=== PATIENT | male | born 1950 | race Caucasian/White ===

== ENCOUNTER 2018-04-13 10:25 | Emergency (ER) | payer OTHER, SELFPAY ==
[2018-04-13 10:25] VITALS: BP 154/74; PULSE 81; RESP 18; TEMP 36.5; O2SAT 100; BMI 20.3
--- NOTE | 2018-04-13 10:34 | ED.ABDPAIN ---
HPI - Abdominal Pain General Chief Complaint: Abdominal Pain Stated Complaint: STOMACH PAIN Time Seen by Provider: 04/13/18 10:34 Source: patient Mode of arrival: ambulatory Limitations: no limitations History of Present Illness HPI narrative: 67-year-old male here for evaluation of left-sided abdominal pain. Patient states that it has started within the past 24-48 hours. States that it comes in waves. Is on his left side. Also states that he has some discomfort with urination. No history kidney stones. No burning with urination. No fevers. No change in bowel habits. No vomiting. Never anything like this before Related Data Previous Rx's Medication Instructions Recorded ciprofloxacin HCl 500 mg PO BID 10 Days #20 tab 04/13/18 metronidazole [Flagyl] 500 mg PO TID 10 Days #30 tab 04/13/18 Allergies Allergy/AdvReac Type Severity Reaction Status Date / Time No Known Drug Allergies Allergy Verified 04/13/18 10:47 Review of Systems Constitutional Denies fever(s) Cardiovascular Denies chest pain and Denies dyspnea Respiratory Denies dyspnea Gastrointestinal Gastrointestinal: Reports abdominal pain, Denies change in bowel habits, Denies diarrhea, Denies nausea and Denies vomiting Genitourinary Denies hematuria, Reports dysuria, Denies testicular pain, Denies urinary frequency and Denies urinary hesitancy Musculoskeletal Denies myalgias and Denies arthralgias Integumentary/Breasts Denies rash Hematologic/Lymphatic Comments: Not on anticoagulation PFSH Medical History Healthy adult (Acute) Surgical History No pertinent past surgical history (Acute) Social History Smoking Status: Current every day smoker Exam Initial Vital Signs Initial Vital Signs: Vital Signs Temperature 97.7 F 04/13/18 10:25 Pulse Rate 81 04/13/18 10:25 Respiratory Rate 18 04/13/18 10:25 Blood Pressure 154/74 H 04/13/18 10:25 Pulse Oximetry 100 04/13/18 10:25 Const General: cooperative, healthy appearing, comfortable, well developed, well groomed and No acute distress Orientation: alert, awake and oriented x3 HENMT Head: normal to inspection and normocephalic Resp Effort & Inspection: normal respiratory effort Auscultation: clear to auscultation bilaterally Cardio Rate: regular rate Rhythm: regular rhythm Pulses: radial pulses present GI Inspection: non-distended Palpation: soft, No firm, No rigid and tender (Left-sided abdominal tenderness) Skin Lesions: no lesions Rashes: no rashes Neuro General: alert, awake and oriented x3 Extrem General: normal to inspection and capillary refill normal Psych Appearance: grossly normal and well kempt Course Orders Ordered: ED Orders 04/13/18 11:10 CT abdomen pelvis w con Stat 04/13/18 11:25 Complete Blood Count AUTO DIFF Stat Comprehensive Metabolic Panel Stat Lipase Stat Discontinued Medications Sodium Chloride (Normal Saline 0.9%) 1,000 mls @ 1,000 mls/hr IV BOLUS ONE Stop: 04/13/18 12:09 Last Infusion: 04/13/18 12:31 Dose: 0 mls/hr Admin: 04/13/18 11:29 Dose: 1,000 mls/hr Vital Signs - 8 hr 04/13/18 10:25 Temperature 97.7 F Pulse Rate 81 Respiratory Rate 18 Blood Pressure 154/74 H Pulse Oximetry 100 MDM - Abdominal Pain Lab Data Attestation: I reviewed the patient's lab results. Result diagrams: 04/13/18 11:25 04/13/18 11:25 Lab Results 04/13/18 04/13/18 Range/Units 11:25 11:25 WBC 11.4 H (4.5-11.0) X10^3/uL RBC 4.73 (4.5-5.9) X10^6/uL Hgb 15.5 (13.5-17.5) g/dL Hct 43.7 (41-53) % MCV 92.5 (80-100) fL MCH 32.8 (26-34) PG MCHC 35.4 (30-36) % RDW 13.7 (11.6-14.8) % Plt Count 252 (150-400) X10^3/uL Neut % (Auto) 83.5 H (50-75) % Lymph % (Auto) 7.9 L (25-40) % [place] % (Auto) 7.8 (3-14) % Eos % (Auto) 0.6 L (2-4) % Baso % (Auto) 0.2 (0-2) % Neut # (Auto) 9500 H (2172-2124) /uL Sodium 135 L (137-145) mmol/L Potassium 4.4 (3.4-5.1) mmol/L Chloride 101 (98-107) mmol/L Carbon Dioxide 24 (22-32) mmol/L BUN 16 (9-20) mg/dL Creatinine 0.70 (0.66-1.25) mg/dL Estimated GFR > 60.0 (>60) mL/min BUN/Creatinine Ratio 22.9 H (6-22) Glucose 109 (80-110) mg/dL Calcium 9.3 (8.4-10.2) mg/dL Total Bilirubin 0.7 (0.2-1.3) mg/dL AST 21 (17-59) IU/L ALT 19 L (21-72) IU/L Alkaline Phosphatase 80 (38-126) U/L Total Protein 7.3 (6.3-8.2) g/dL Albumin 4.0 (3.5-5.0) g/dL Globulin 3.3 (1.7-4.1) g/dL Albumin/Globulin Ratio 1.2 (1.0-2.8) Lipase 17 L (23-300) U/L Imaging Data CT scan - abdomen: Radiologist's impression: PROCEDURE: CT ABDOMEN PELVIS W CON INDICATIONS: Left-sided abdominal pain TECHNIQUE: After the administration of intravenous contrast, 5 mm thick sections acquired from the diaphragm to the symphysis. 5 mm coronal and sagittal reformats were acquired. For radiation dose reduction, the following was used: automated exposure control, adjustment of mA and/or kV according to patient size. COMPARISON: None. FINDINGS: Image quality: Excellent. ABDOMEN: Lung bases: Lung bases are clear. Heart size is normal. Solid organs: Liver is normal in size and enhancement. Gallbladder is unremarkable. Biliary system is non dilated. Pancreas enhances normally. Spleen is normal in size and enhancement. No adrenal nodules. Kidneys demonstrate normal size and enhancement, without hydronephrosis. Subcentimeter hypoechoic foci within the left kidney are too small to fully characterize on this exam, but likely represent renal cysts. Peritoneum and bowel: No free intracranial air identified. There are multiple loops of dilated fluid-filled small bowel throughout the abdomen. There is diffuse wall thickening of the sigmoid colon with pericolonic fluid noted. The appendix cannot be clearly identified on this exam, but there are no convincing right lower quadrant inflammatory findings to suggest acute appendicitis. Nodes and vessels: No retroperitoneal or mesenteric adenopathy by size criteria. Aorta and inferior vena cava are normal in size. Moderate calcified and noncalcified plaque of the abdominal aorta and branch vessels. Miscellaneous: No ventral hernias. PELVIS: Genitourinary: Bladder wall thickness is normal. Miscellaneous: No inguinal hernias or adenopathy. Bones: No suspicious bony lesions. No vertebral body compression fractures. Minimal multilevel degenerative changes of the spine. IMPRESSION: Diffuse wall thickening of the sigmoid colon with pericolonic fluid, concerning for an acute colitis/diverticulitis. Multiple loops of dilated fluid filled small bowel within the abdomen may represent a superimposed ileus versus bowel obstruction. Dictated by: Karan Bolanos M.D. on 04/13/2018 at 13:19 MDM Narrative Medical decision making narrative: Patient with a relatively benign abdominal exam. Is afebrile. CT scan does show diverticulitis and this does fit his symptoms. His urine shows no signs of infection. Low concern for renal stones. Despite CT scan results I do feel that obstruction is less likely. No signs of abscess. Will send home with a prescription for oral antibiotics. Patient was given return precautions. His is at bedside. They expressed understanding and agreement plan. Discharge Plan Departure Patient Disposition: Home Clinical Impression: Diverticulitis Instructions: Diverticulitis Activity Restrictions/Additional Instructions: I recommend that you start the antibiotics today and take them as directed. I do recommend that you may contact with the primary care doctor because eventually will need a colonoscopy. Return to the emergency department for any new symptoms, fevers, inability to take your medications, worsening abdominal pain or any other concerning symptoms Prescriptions: New metronidazole [Flagyl] 500 mg tablet 500 mg PO TID 10 Days Qty: 30 RF: 0 ciprofloxacin HCl 500 mg tablet 500 mg PO BID 10 Days Qty: 20 RF: 0
--- NOTE | 2018-04-13 11:10 | DI.CT.S_ITS ---
PROCEDURE: CT ABDOMEN PELVIS W CON INDICATIONS: Left-sided abdominal pain TECHNIQUE: After the administration of intravenous contrast, 5 mm thick sections acquired from the diaphragm to the symphysis. 5 mm coronal and sagittal reformats were acquired. For radiation dose reduction, the following was used: automated exposure control, adjustment of mA and/or kV according to patient size. COMPARISON: None. FINDINGS: Image quality: Excellent. ABDOMEN: Lung bases: Lung bases are clear. Heart size is normal. Solid organs: Liver is normal in size and enhancement. Gallbladder is unremarkable. Biliary system is non dilated. Pancreas enhances normally. Spleen is normal in size and enhancement. No adrenal nodules. Kidneys demonstrate normal size and enhancement, without hydronephrosis. Subcentimeter hypoechoic foci within the left kidney are too small to fully characterize on this exam, but likely represent renal cysts. Peritoneum and bowel: No free intracranial air identified. There are multiple loops of dilated fluid-filled small bowel throughout the abdomen. There is diffuse wall thickening of the sigmoid colon with pericolonic fluid noted. The appendix cannot be clearly identified on this exam, but there are no convincing right lower quadrant inflammatory findings to suggest acute appendicitis. Nodes and vessels: No retroperitoneal or mesenteric adenopathy by size criteria. Aorta and inferior vena cava are normal in size. Moderate calcified and noncalcified plaque of the abdominal aorta and branch vessels. Miscellaneous: No ventral hernias. PELVIS: Genitourinary: Bladder wall thickness is normal. Miscellaneous: No inguinal hernias or adenopathy. Bones: No suspicious bony lesions. No vertebral body compression fractures. Minimal multilevel degenerative changes of the spine. IMPRESSION: Diffuse wall thickening of the sigmoid colon with pericolonic fluid, concerning for an acute colitis/diverticulitis. Multiple loops of dilated fluid filled small bowel within the abdomen may represent a superimposed ileus versus bowel obstruction. Dictated by: Karan Bolanos M.D. on 04/13/2018 at 13:19 Approved by: Karan Bolanos M.D. on 04/13/2018 at 13:27
[2018-04-13] MEDS: SODIUM CHLORIDE 0.9% 1,000 ML 1000 ML IV (11:29)
[2018-04-13 11:32] LABS: Add Manual Diff / Slide Review NO; Basophils Percent Auto 0.2 % (0-2); Eosinophils Percent Auto 0.6 % (2-4); Hematocrit 43.7 % (41-53); Hemoglobin 15.5 g/dL (13.5-17.5); Lymphocytes Percent Auto 7.9 % (25-40); Mean Corpuscular HGB Conc 35.4 % (30-36); Mean Corpuscular Hemoglobin 32.8 PG (26-34); Mean Corpuscular Volume 92.5 fL (80-100); Monocytes Percent Auto 7.8 % (3-14); Neutrophils Absolute Auto 9500 /uL (1500-7000); Neutrophils Percent Auto 83.5 % (50-75); Platelet Count 252 X10^3/uL (150-400); Red Blood Cell Count 4.73 X10^6/uL (4.5-5.9); Red Cell Distribution Width 13.7 % (11.6-14.8); White Blood Cell Count 11.4 X10^3/uL (4.5-11.0)
[2018-04-13 11:44] LABS: Alanine Aminotransferase 19 IU/L (21-72); Albumin Globulin Ratio 1.2 (1.0-2.8); Alkaline Phosphatase 80 U/L (38-126); Aspartate Aminotransferase 21 IU/L (17-59); BUN Creatinine Ratio 22.9 (6-22); Bilirubin Total 0.7 mg/dL (0.2-1.3); Blood Urea Nitrogen 16 mg/dL (9-20); Calcium 9.3 mg/dL (8.4-10.2); Carbon Dioxide 24 mmol/L (22-32); Chloride 101 mmol/L (98-107); Estimated Glomerular Filt Rate > 60.0 mL/min (>60); Globulin 3.3 g/dL (1.7-4.1); Glucose 109 mg/dL (80-110); HEMOLYSIS 16 (0-50); Lipase 17 U/L (23-300); Potassium 4.4 mmol/L (3.4-5.1); Sodium 135 mmol/L (137-145); Total Protein 7.3 g/dL (6.3-8.2)
[2018-04-13 13:56] VITALS: BP 127/66; PULSE 55; RESP 14; O2SAT 99
== END 2018-04-13 13:57 | disposition home or self-care (01) ==
PROVIDERS: Emergency Provider Emergency Medicine; PCP Family Medicine
DX: K57.92 Diverticulitis of intestine, part unspecified, without perforation or abscess without bleeding (principal)
CPT/HCPCS: 36591; 74177; 80053; 81003; 83690; 85025; 96360; 99283; 99285; Q9967

== ENCOUNTER → 2019-10-13 11:32 | Outpatient (CLI) | payer OTHER, SELFPAY ==
--- NOTE | 2019-10-13 11:33 | DI.RAD.S_ITS ---
PROCEDURE: XR HAND RT MIN 3V INDICATIONS: traumatic amputation 4th digit TECHNIQUE: Pre-views of the hand(s) acquired. COMPARISON: None. FINDINGS: Bones: There is amputation of the right ring finger at the level at the base of the proximal phalanx. There is overlying soft tissue swelling and defect. Remainder of the visualized osseous structures appear intact. Carpal bones are normally aligned. No suspicious bony lesions. Soft tissues: No suspicious soft tissue calcifications. IMPRESSION: Amputation of the right ring finger at the level of the base of the distal phalanx. No radiopaque soft tissue foreign bodies visualized. Dictated by: Cuate Blas M.D. on 10/13/2019 at 14:42 Approved by: Cuate Blas M.D. on 10/13/2019 at 14:44
== END ==
PROVIDERS: PCP Family Medicine; Referring Provider Family Medicine; Visit Provider Family Medicine
DX: S68.114A Complete traumatic metacarpophalangeal amputation of right ring finger, initial encounter (principal); X58.XXXA Exposure to other specified factors, initial encounter
CPT/HCPCS: 73130

== ENCOUNTER → 2019-10-20 14:13 | Outpatient (CLI) | payer OTHER, SELFPAY ==
[2019-10-21 21:45] LABS: COVID19 Sendout Not Detected (Not Detect)
== END ==
PROVIDERS: PCP Family Medicine; Visit Provider Physician Assistant
DX: Z01.812 Encounter for preprocedural laboratory examination (principal)
CPT/HCPCS: 87635

== ENCOUNTER 2019-10-23 08:32 | Day surgery (SDC) | payer OTHER, SELFPAY ==
[2019-10-20 11:47] VITALS: BMI 19.9
[2019-10-23] VITALS (7 sets, daily range): BP systolic 113–149; BP diastolic 69–80; PULSE 42–47; RESP 15–20; TEMP 36.2–36.7; O2SAT 97–100; BMI 19.9
[2019-10-23] MEDS: LACTATED RINGERS 1,000 ML 42 ML IV (08:53)
--- NOTE | 2019-10-23 09:55 | PM.PREOP ---
Pre-operative Note COVID-19 COVID-19 status: Negative Result date/Date tested (Pos, Neg/Pending): 10/20/19 Interval Note History & Physical reviewed/Exam performed by Physician: Yes Changes to H&P: No
[2019-10-23] MEDS: CEFAZOLIN 2 GM/100 ML FROZ.PIGGY IV (10:12)
[2019-10-23] MEDS: BUPIVACAINE 0.25% W/ EPI 30 ML VIAL INJ (10:32)
--- NOTE | 2019-10-23 10:34 | SUR.OPER ---
Supine on padded OR bed, head on pillow, operative arm secured on padded hand table at <90 degrees abduction, nonoperative arm on padded armboard at <90 degrees abduction, legs uncrossed, safety belt at thigh, tape over blanket over lower legs.
--- NOTE | 2019-10-23 11:23 | PM.OP.1 ---
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 He had a rudimentary closure at a clinic in [place] where [place]. He is interested in revision amputation shortening through the dip joint to facilitate wound healing decrease the profile of the bulbous amputation stump site. He has baseline decreased digit sensation the baseline PIP joint her fracture from Dupuytren's. The risks and benefits of the procedure have been discussed with the patient even opportunity to ask questions. The risks of surgery include but are not limited to infection, malunion, nonunion, persistence of pain, damage to nerves and blood vessels, posttraumatic arthritis, DVT, PE, cardiopulmonary complications and . The patient expressed a thorough understanding of the risks and benefits of surgery and has elected to proceed. Consent was signed. Surgeon: Sarah Tesfaye Click Yes if Unassisted: Yes Anesthesia Type: General and Local Operative Notes Findings: Traumatic amputation to the base of the distal phalanx. Open wound volarly partially healed there is some fibrinous exudate no surrounding erythema. There is a large knot of not yet dissolved suture present centrally and nylon sutures peripherally. These are removed. The finger is opened the fishmouth type incision the room minute of the distal phalanx was removed through the DIP joint. This is shortened and smoothed off using the rongeur. Flexor tendon is found and cut and allowed to retract preop extensor tendon previously been cut and not present. The neurovascular bundles on the medial lateral aspects were then isolated and the nerves were cut on tension laterally to retract. Closure Type: primary Specimen(s): none sent Estimated Blood Loss (mL): 1 Blood products transfused: none Procedure in detail: Patient was seen in the preoperative area site of surgery was marked informed consent confirmed. Patient's back to the operating room by the anesthesia team anesthesia was administered. The patient's right hand was positioned on hand table. Formal prepping and draping of the site of surgery was undertaken. A formal time-out was performed confirming the patient's side and site of surgery administration of appropriate preoperative antibiotics. All were in agreement. Attention was turned to the right ring finger. 3 cc of 0.25% Marcaine with lidocaine were used as the volar metacarpal block. Streetman drain was used as a tourniquet for approximately 10 minutes. Previous sutures were removed and the poor healing distal wound tissue was debrided. Fishmouth incision was drawn out. This was opened up and the volar and dorsal skin flaps retracted exposing remainder of the distal phalanx which was removed through the DIP joint and a rongeur was used to smooth the condyles of the DIP joint to reduce the profile. Once this was completed wound was irrigated. Flexor Tavia right isolated low cut under tension and allowed to retract. Then the neurovascular bundles were isolated and nerve was cut under tension allowed to retract. Vascular structures were shortening cauterized. Next to the closure flaps were fashioned. Some deep 4 0 Monocryl sutures were placed followed by 4 0 nylon in the skin. Flaps were fashioned and dog-ears trimmed. Wound closed up nicely. The tourniquet got that was used for approximately 10 minutes was then let go and the finger pinked up nicely. Dressings were placed and the patient was taken to the PACU in good condition. No immediate complications this procedure. Complications: none Post-operative Condition: stable Disposition: PACU Plan for aftercare: Keep dressing clean dry and intact. If saturated may change to clean gauze. Take medications as directed for pain. Follow up in 2 weeks.
--- NOTE | 2019-10-23 12:05 | SUR.PHASEII ---
1158-Pt dressed and ready to go, denies pain or nausea. All dc instructions given and pt verbalizes understanding, rx and written instructions with pt. Gaitt steady and no problems drinking juice. at ER curbside, pt taken out via wc by tech. Kenia
== END 2019-10-23 11:58 | disposition home or self-care (01) ==
PROVIDERS: PCP Family Medicine; Referring Provider Orthopaedic Surgery Foot and Ankle Surgery; Visit Provider Orthopaedic Surgery Foot and Ankle Surgery
PROC: (CPT 26951; principal; 2019-10-23 10:15)
DX: S68.624A Partial traumatic transphalangeal amputation of right ring finger, initial encounter (principal); X58.XXXA Exposure to other specified factors, initial encounter; Y93.89 Activity, other specified; Y92.89 Other specified places as the place of occurrence of the external cause; F17.210 Nicotine dependence, cigarettes, uncomplicated
CPT/HCPCS: 26951; J0690; J2250; J2704; J3010

== ENCOUNTER → 2023-01-04 08:54 | Outpatient (CLI) | payer MEDICARE, OTHER, SELFPAY ==
[2023-01-04 10:35] LABS: Add Manual Diff / Slide Review NO; Basophils Absolute Auto 100 /uL (0-100); Basophils Percent Auto 1.1 % (0-2); Eosinophils Absolute Auto 200 /uL (0-450); Eosinophils Percent Auto 3.2 % (2-4); Hematocrit 45.5 % (41-53); Hemoglobin 15.7 g/dL (13.5-17.5); Lymphocytes Absolute Auto 2000 /uL (1100-4500); Lymphocytes Percent Auto 29.9 % (25-40); Mean Corpuscular HGB Conc 34.5 % (30-36); Mean Corpuscular Hemoglobin 32.6 PG (26-34); Mean Corpuscular Volume 94.3 fL (80-100); Monocytes Absolute Auto 700 /uL (0-900); Monocytes Percent Auto 11.1 % (3-14); Neutrophils Absolute Auto 3600 /uL (1500-7000); Neutrophils Percent Auto 54.7 % (50-75); Platelet Count 241 X10^3/uL (150-400); Red Blood Cell Count 4.82 X10^6/uL (4.5-5.9); Red Cell Distribution Width 14.3 % (11.6-14.8); White Blood Cell Count 6.6 X10^3/uL (4.5-11.0)
[2023-01-04 10:50] LABS: Alanine Aminotransferase 27 IU/L (<50); Albumin 4.2 g/dL (3.5-5.0); Albumin Globulin Ratio 1.4 (1.0-2.8); Alkaline Phosphatase 74 U/L (38-126); Aspartate Aminotransferase 31 IU/L (17-59); BUN Creatinine Ratio 13.7 (6-22); Bilirubin Total 0.5 mg/dL (0.2-1.3); Blood Urea Nitrogen 10 mg/dL (9-20); Calcium 9.3 mg/dL (8.4-10.2); Carbon Dioxide 28 mmol/L (22-32); Chloride 100 mmol/L (98-107); Cholesterol 178 mg/dL (140-199); Estimated Glomerular Filt Rate > 60 mL/min (>60); Globulin 3.1 g/dL (1.7-4.1); Glucose 99 mg/dL (80-110); HDL Cholesterol 80 mg/dL (40-60); HEMOLYSIS < 15 (0-50); LDL Cholesterol Calculated 89 mg/dL (<100); Potassium 4.7 mmol/L (3.4-5.1); Sodium 134 mmol/L (137-145); Total Protein 7.3 g/dL (6.3-8.2); Triglycerides 44 mg/dL (35-150)
[2023-01-04 11:20] LABS: Prostate Specific Antigen 3.88 ng/mL (0.10-4.00)
[2023-01-04 11:23] LABS: TSH w/ Reflex to FT4 1.76 uIU/mL (0.47-4.68)
== END ==
PROVIDERS: PCP Family Medicine; Referring Provider Family Medicine; Visit Provider Family Medicine
DX: Z13.6 Encounter for screening for cardiovascular disorders (principal); Z12.5 Encounter for screening for malignant neoplasm of prostate; Z00.00 Encounter for general adult medical examination without abnormal findings; R53.83 Other fatigue; D64.9 Anemia, unspecified
CPT/HCPCS: 36415; 80053; 80061; 84153; 84443; 85025; G0103

== ENCOUNTER → 2023-03-13 10:44 | Outpatient (CLI) | payer MEDICARE, OTHER, SELFPAY ==
--- NOTE | 2023-03-13 10:47 | DI.CT.S_ITS ---
PROCEDURE: CT LUNG LOW DOSE SCREENING INDICATIONS: smoking TECHNIQUE: Noncontrast 2.0-2.5 mm thick sections acquired from the pulmonary apices to the posterior costophrenic angles. 7 mm thick axial MIP, and 5 mm coronal and sagittal reformats were then acquired. For radiation dose reduction, the following was used: automated exposure control, adjustment of mA and/or kV according to patient size. COMPARISON: None. FINDINGS: Image quality: Diagnostic, given the low radiation dose technique. Lungs and pleura: There are some small pulmonary nodular densities scattered throughout both lungs in the 1-3 mm range. There is some mild to moderate emphysematous change noted throughout both lungs. No focal lung infiltrate or significant pulmonary mass lesion is identified. No pleural effusion. Mediastinum: Heart size is normal. No pericardial effusion. No mediastinal adenopathy by size criteria. Thoracic aorta and central pulmonary arteries are normal in size. Esophagus is normal in caliber. No hiatal hernia. There are coronary artery and atherosclerotic vascular calcifications. Bones and chest wall: No suspicious bony lesions. No vertebral body compression fractures. No axillary or supraclavicular adenopathy by size criteria. There is a 1.3 low-attenuation thyroid nodule on the right which require sonographic follow up, per consensus guidelines.>> Upper Abdomen: Visualized upper abdomen solid organs and bowel loops appear normal in the absence of contrast. IMPRESSION: Small 1-3 mm pulmonary nodules scattered throughout both lungs. LUNG-RADS 2 . Continue annual surveillance at 1 year intervals. Clinically Significant Non-pulmonary Findings: 1. 1.3 cm low-attenuation nodule in the right aspect of the patient's thyroid gland. Recommend thyroid ultrasound for further evaluation. 2. Mild to moderate emphysematous change noted throughout both lungs. 3. Coronary artery and atherosclerotic vascular calcifications. Dictated by: Esvin Powell M.D. on 03/13/2023 at 14:51 Approved by: Esvin Powell M.D. on 03/13/2023 at 14:59
== END ==
PROVIDERS: PCP Family Medicine; Referring Provider Family Medicine; Visit Provider Family Medicine
DX: F17.210 Nicotine dependence, cigarettes, uncomplicated (principal); R91.8 Other nonspecific abnormal finding of lung field; E04.1 Nontoxic single thyroid nodule; I25.10 Atherosclerotic heart disease of native coronary artery without angina pectoris
CPT/HCPCS: 71271

== ENCOUNTER → 2024-02-24 08:24 | Outpatient (CLI) | payer MEDICARE, OTHER, SELFPAY ==
[2024-02-24 09:04] LABS: Add Manual Diff / Slide Review NO; Basophils Absolute Auto 100 /uL (0-100); Basophils Percent Auto 0.7 % (0-2); Eosinophils Absolute Auto 200 /uL (0-450); Eosinophils Percent Auto 3.3 % (2-4); Hematocrit 45.9 % (41-53); Hemoglobin 15.2 g/dL (13.5-17.5); Lymphocytes Absolute Auto 1700 /uL (1100-4500); Lymphocytes Percent Auto 24.9 % (25-40); Mean Corpuscular HGB Conc 33.1 % (30-36); Mean Corpuscular Hemoglobin 31.5 PG (26-34); Mean Corpuscular Volume 94.9 fL (80-100); Monocytes Absolute Auto 600 /uL (0-900); Monocytes Percent Auto 9.3 % (3-14); Neutrophils Absolute Auto 4200 /uL (1500-7000); Neutrophils Percent Auto 61.8 % (50-75); Platelet Count 309 X10^3/uL (150-400); Red Blood Cell Count 4.83 X10^6/uL (4.5-5.9); Red Cell Distribution Width 13.9 % (11.6-14.8); White Blood Cell Count 6.9 X10^3/uL (4.5-11.0)
[2024-02-24 09:23] LABS: Alanine Aminotransferase 23 IU/L (<50); Albumin 3.9 g/dL (3.5-5.0); Albumin Globulin Ratio 1.6 (1.0-2.8); Alkaline Phosphatase 82 U/L (38-126); Aspartate Aminotransferase 30 IU/L (17-59); BUN Creatinine Ratio 12.8 (6-22); Bilirubin Total 0.6 mg/dL (0.2-1.3); Blood Urea Nitrogen 10 mg/dL (9-20); Carbon Dioxide 29 mmol/L (22-32); Chloride 102 mmol/L (98-107); Cholesterol 190 mg/dL (140-199); Estimated Glomerular Filt Rate > 60 mL/min (>60); Globulin 2.5 g/dL (1.7-4.1); Glucose 107 mg/dL (80-110); HDL Cholesterol 74 mg/dL (40-60); HEMOLYSIS < 15 (0-50); LDL Cholesterol Calculated 105 mg/dL (<100); Potassium 4.8 mmol/L (3.4-5.1); Sodium 135 mmol/L (137-145); Total Protein 6.4 g/dL (6.3-8.2); Triglycerides 54 mg/dL (35-150)
[2024-02-24 09:53] LABS: Prostate Specific Antigen 3.98 ng/mL (0.10-4.00); Thyroid Stimulating Hormone 1.71 uIU/mL (0.47-4.68)
== END ==
PROVIDERS: PCP Family Medicine; Referring Provider Family Medicine; Visit Provider Family Medicine
DX: Z00.00 Encounter for general adult medical examination without abnormal findings (principal); Z13.6 Encounter for screening for cardiovascular disorders; Z12.5 Encounter for screening for malignant neoplasm of prostate
CPT/HCPCS: 36415; 80053; 80061; 84153; 84443; 85025; G0103

== ENCOUNTER → 2024-03-19 14:24 | Outpatient (CLI) | payer MEDICARE, SELFPAY ==
--- NOTE | 2024-03-19 14:25 | DI.CT.S_ITS ---
PROCEDURE: CT LUNG LOW DOSE SCREENING INDICATIONS: f/u thyroid nodule TECHNIQUE: Noncontrast 2.0-2.5 mm thick sections acquired from the pulmonary apices to the posterior costophrenic angles. 7 mm thick axial MIP, and 5 mm coronal and sagittal reformats were then acquired. For radiation dose reduction, the following was used: automated exposure control, adjustment of mA and/or kV according to patient size. COMPARISON: [facility], CT, CT LUNG LOW DOSE SCREENING, 03/13/2023, 10:56. FINDINGS: Image quality: Diagnostic. Lower Neck: No enlarged lymph nodes. Thyroid: Patient's known right thyroid lobe nodule is again seen and unchanged. Axillae: No enlarged lymph nodes. Subcentimeter lymph nodes are seen in bilateral axilla and measures up to 8 mm in size on the left side and 7 mm in size on the right side. Chest Wall: Unremarkable. Bones: No aggressive appearing bony lesions. Lungs and Pleura: No pneumothorax or pleural effusions. There is moderate centrilobular emphysema. Previously described 1-3 mm bilateral pulmonary nodules are again seen and are stable in size and appearance compared to prior studies with reference nodule seen in right middle lobe and measures 3 mm in size series 3 image 216. 9 x 6 mm nodular density is seen adjacent to posterior pleura of right lung base series 3, image 302. This area was more linear in appearance on previous study. Heart: Heart size is normal. No pericardial effusion. Thoracic Vessels: The aorta and pulmonary arteries demonstrate normal size. 2 vessel coronary artery atherosclerotic calcifications are seen. Mediastinum and Chandrika: No enlarged lymph nodes. Esophagus: No wall thickening. No hiatal hernia. Upper Abdomen: Visualized upper abdomen solid organs and bowel loops appear normal. IMPRESSION: 9 x 6 mm nodular density in posterior aspect of right lung base which could represent focal nodular atelectasis. Follow-up CT chest in 3 months is recommended. Other pulmonary nodules are all stable in size and appearance. Moderate centrilobular emphysema. LUNG-RADS 4A : Suspicious, recommend 3 month follow-up CT. Clinically Significant Non-pulmonary Findings: Moderate 2 vessel coronary artery atherosclerotic calcifications. Dictated by: Wilfrido Casillas M.D. on 03/19/2024 at 15:35 Approved by: Wilfrido Casillas M.D. on 03/19/2024 at 15:59
--- NOTE | 2024-03-19 14:25 | DI.US.S_ITS ---
PROCEDURE: US THYROID INDICATIONS: f/u thyroid nodule TECHNIQUE: Real-time scanning was performed of the thyroid gland, with image documentation. COMPARISON: None. FINDINGS: Thyroid: Right lobe measures 5.2 x 1.8 x 1.6 cm. Left lobe measures 4.5 x 1.5 x 1.3 cm. Isthmus is 0.2 cm thick. Echotexture is mildly heterogeneous. Nodule number: 1 Location: Right middle pole Size: 1.7 x 1.0 x 1.3 cm. Composition: Solid Echogenicity: Hypoechoic Shape: wider than tall. Margins: Smooth Echogenic foci: None Total points: 4 ACR TI-RADS category: TI-RADS 4 Nodule number: 2 Location: Right upper pole Size: 1.1 x 0.8 x 0.7 cm. Composition: Solid Echogenicity: Hypoechoic Shape: wider than tall. Margins: Smooth Echogenic foci: None Total points: 4 ACR TI-RADS category: TI-RADS 4 IMPRESSION: There are 2 right lobe thyroid nodules noted. There both TI-RADS 4 lesions. Based on the definitions and recommendations below, the larger of the 2 nodules, the right middle pole nodule satisfies criteria for ultrasound-guided FNA for tissue diagnosis, if this has nodule not previously been sampled with a benign diagnosis. ACR TI-RADS definitions and recommendations: TI-RADS 1 (benign): 0 points. FNA not needed. TI-RADS 2 (not suspicious): 2 points. FNA not needed. TI-RADS 3: 3 points. * FNA if 2.5 cm or larger, follow up if 1.5 cm or larger (at 1, 3, and 5 years). TI-RADS 4: 4-6 points. * FNA if 1.5 cm or larger, follow up if 1 cm or larger (at 1, 2, 3, and 5 years). TI-RADS 5: 7 points or more. * FNA if 1 cm or larger, follow up if 0.5 cm or larger (every year for 5 years). Dictated by: Duarte Rodriguez M.D. on 03/20/2024 at 10:10 Approved by: Duarte Rodriguez M.D. on 03/20/2024 at 10:15
== END ==
PROVIDERS: PCP Family Medicine; Referring Provider Family Medicine; Visit Provider Family Medicine
DX: Z12.2 Encounter for screening for malignant neoplasm of respiratory organs (principal); E04.2 Nontoxic multinodular goiter; F17.210 Nicotine dependence, cigarettes, uncomplicated; J43.2 Centrilobular emphysema; R91.8 Other nonspecific abnormal finding of lung field; I25.10 Atherosclerotic heart disease of native coronary artery without angina pectoris
CPT/HCPCS: 71271; 76536

== ENCOUNTER → 2024-03-25 14:23 | Outpatient (CLI) | payer MEDICARE, SELFPAY ==
[2024-03-27 13:36] LABS: Fecal Immunochemical Test Negative (Negative)
== END ==
PROVIDERS: PCP Family Medicine; Referring Provider Family Medicine; Visit Provider Family Medicine
DX: Z12.11 Encounter for screening for malignant neoplasm of colon (principal)
CPT/HCPCS: 82274

== ENCOUNTER → 2024-09-09 12:56 | Outpatient (CLI) | payer MEDICARE, SELFPAY ==
--- NOTE | 2024-09-09 12:58 | DI.US.S_ITS ---
PROCEDURE: US FINE NEEDLE ASPIRATION INDICATIONS: RIGHT NODULE TECHNIQUE: The indications, alternatives, benefits, risks, and complications of the procedure were explained to the patient. Written informed consent was obtained and placed in the chart. The thyroid region was examined sonographically and a site was chosen for ultrasound guided percutaneous sampling. The skin was prepared and draped in the usual fashion, and anesthetized with 1% lidocaine infiltrated from the skin down to the thyroid gland. Multiple passes were then performed, with contents emptied into an appropriate pathology specimen container. A bandage was applied to the area of access at completion of the study. COMPARISON: None. FINDINGS: Location(s) of lesion(s) sampled: Lower pole right thyroid lobe nodule. Sawyer: 25 gauge hypodermic needles. Number of passes: 6 Medications: 1% lidocaine for local anaesthesia. Complications: None. IMPRESSION: Successful ultrasound-guided thyroid nodule fine needle aspiration, with cytology results pending. Please see chart below for management recommendations based on cytology results. [facility] ReportingRecommendationsNon-diagnostic* Repeat US-guided FNA, with on-site cytology evaluation if possible. * Repeated non-diagnostic nodules without high suspicion US features: close observation vs surgical consult. * Consider surgery if nodule has high suspicion US features, grows >20% in 2 dimensions on followup, or patient has clinical risk factors for malignancy. Benign* If nodule has high suspicion US features: repeat US and FNA within 12 months. * If nodule has low to intermediate suspicion US features: repeat US at 12-24 months. If nodule grows (20% increase in at least 2 dimensions, with minimal increase of 2 mm or >50% change in volume), or development of new suspicious US features, then repeat FNA or continue followup. * If nodule has very low suspicion US features: followup US at >24 months. Atypia of undetermined significance, follicular lesion of undetermined significanceRepeat FNA, molecular testing, followup US, or surgical consult.Follicular neoplasm, suspicious for follicular neoplasmSurgical consult; also consider molecular testing. Suspicious for malignancySurgical consult.MalignantSurgical consult. Dictated by: Wilfrido Casillas M.D. on 09/12/2024 at 19:22 Approved by: Wilfrido Casillas M.D. on 09/12/2024 at 19:23
--- NOTE | 2024-09-09 12:58 | DI.CT.S_ITS ---
PROCEDURE: CT CHEST WO CON INDICATIONS: eval of pulmonary nodule on previos scan TECHNIQUE: Noncontrast 2.0-2.5 mm thick sections acquired from the pulmonary apices to the posterior costophrenic angles. 7 mm thick axial MIP, and 5 mm coronal and sagittal reformats were then acquired. For radiation dose reduction, the following was used: automated exposure control, adjustment of mA and/or kV according to patient size. COMPARISON: [facility], CT, CT LUNG LOW DOSE SCREENING, 03/19/2024, 15:06. FINDINGS: Image quality: Diagnostic. Lower Neck: No enlarged lymph nodes. Thyroid: Subcentimeter thyroid nodules do not require dedicated imaging follow-up. Axillae: No significantly enlarged lymph nodes. Chest Wall: Unremarkable. Bones: Unremarkable. Lungs and Pleura: No pneumothorax or pleural effusions. Band like area of atelectasis or scarring again seen at the right lung base with decreased inferior nodular component now measuring 5 x 5 mm (3/328) when compared to 9 x 6 mm previously. Additional pulmonary micronodules measuring 3 mm or less and benign calcified granulomas appear unchanged. Moderate centrilobular emphysema. Heart: Heart size is normal. No pericardial effusion. Moderate coronary artery calcifications. Thoracic Vessels: The aorta and pulmonary arteries demonstrate normal size. Mediastinum and Chandrika: No enlarged lymph nodes. Esophagus: No wall thickening. No hiatal hernia. Upper Abdomen: Visualized upper abdomen solid organs and bowel loops appear normal. IMPRESSION: Right lung base nodule has decreased in size when compared to the CT from 03/19/2024, favoring a benign process. LUNG-RADS 3; six-month follow-up low-dose chest CT. Clinically Significant Non-pulmonary Findings: Moderate coronary artery calcifications. Approved by: Delvin Hugo M.D. on 09/10/2024 at 14:00
== END ==
PROVIDERS: PCP Family Medicine; Referring Provider Family Medicine; Visit Provider Family Medicine
DX: R91.1 Solitary pulmonary nodule (principal); I25.10 Atherosclerotic heart disease of native coronary artery without angina pectoris; J43.2 Centrilobular emphysema; E04.1 Nontoxic single thyroid nodule
CPT/HCPCS: 10005; 71250

== ENCOUNTER → 2025-04-10 10:41 | Outpatient (CLI) | payer MEDICARE, SELFPAY ==
[2025-04-10 12:19] LABS: Add Manual Diff / Slide Review NO; Hematocrit 46.3 % (41-53); Hemoglobin 15.8 g/dL (13.5-17.5); Lymphocytes Absolute Auto 2000 /uL (1100-4500); Mean Corpuscular HGB Conc 34.1 % (30-36); Mean Corpuscular Hemoglobin 31.6 PG (26-34); Mean Corpuscular Volume 92.7 fL (80-100); Platelet Count 234 X10^3/uL (150-400)
[2025-04-10 12:36] LABS: Alanine Aminotransferase 20 IU/L (<50); Albumin 4.3 g/dL (3.5-5.0); Albumin Globulin Ratio 1.5 (1.0-2.8); Alkaline Phosphatase 75 U/L (38-126); Blood Urea Nitrogen 14 mg/dL (9-20); Calcium 9.1 mg/dL (8.4-10.2); Carbon Dioxide 29 mmol/L (22-32); Chloride 101 mmol/L (98-107); Cholesterol 204 mg/dL (140-199); Estimated Glomerular Filt Rate > 60 mL/min (>60); Globulin 2.8 g/dL (1.7-4.1); Glucose 108 mg/dL (70-99); HDL Cholesterol 106 mg/dL (40-60); HEMOLYSIS < 15 (0-50); Potassium 4.8 mmol/L (3.4-5.1); Sodium 136 mmol/L (137-145); Total Protein 7.1 g/dL (6.3-8.2); Triglycerides 60 mg/dL (35-150)
[2025-04-10 13:09] LABS: TSH w/ Reflex to FT4 2.16 uIU/mL (0.47-4.68)
== END ==
PROVIDERS: PCP Family Medicine; Referring Provider Family Medicine; Visit Provider Family Medicine
DX: Z12.5 Encounter for screening for malignant neoplasm of prostate (principal); Z13.220 Encounter for screening for lipoid disorders; E04.1 Nontoxic single thyroid nodule; I10 Essential (primary) hypertension; K57.92 Diverticulitis of intestine, part unspecified, without perforation or abscess without bleeding; F17.200 Nicotine dependence, unspecified, uncomplicated
CPT/HCPCS: 36415; 80053; 80061; 84443; 85025; G0103